=== PATIENT | female | born 1940 | race Caucasian/White ===

== ENCOUNTER 2024-07-18 12:22 | Emergency (ER) | payer MEDICARE ==
[~2024-07-18] VITALS: Ht 157.5 cm; Wt 73.0 kg
[2024-07-18 12:28] VITALS: BP 97/50; PULSE 65; RESP 16; TEMP 97.5; O2SAT 98
== END 2024-07-18 15:38 | disposition home or self-care (01) ==
LOC: ER 12:22 → CANBEDREQ 15:19 → ER 15:38
DX: R55 Syncope and collapse (principal); I48.92 Unspecified atrial flutter; E11.9 Type 2 diabetes mellitus without complications; I10 Essential (primary) hypertension; N28.9 Disorder of kidney and ureter, unspecified; Z88.8 Allergy status to other drugs, medicaments and biological substances
CPT/HCPCS: 93005; 99283